=== PATIENT | male | born 1985 | race African-American/Black ===

== ENCOUNTER 2017-05-27 21:47 | Inpatient (IN) | payer OTHER ==
[~2017-05-27] VITALS: Ht 182.9 cm; Wt 75.0 kg
[~2017-05-27 21:47] MED LIST: ACETAMINOPHEN 325 MG TAB PO PRN; FLUMAZENIL 0.5 MG/5 ML VIAL IV PUSH PRN; LORazepam 1 MG TAB PO PRN; LORazepam 2 MG TAB PO PRN; LORazepam 2 MG/ML VIAL IV PUSH PRN; NALOXONE HCL 0.4 MG/ML AMP IV PUSH PRN; SODIUM CHLORIDE 0.9% FLUSH 10 ML FLUSH IV FLUSH PRN
[2017-05-27 21:50] VITALS: PULSE 91
[2017-05-27] MEDS ORDERED: IOHEXOL 350 MG/ML 10 ML VIAL (for RAD DIAG) IVCONTRAST ONE ×2 (22:32)
[2017-05-27] MEDS: SODIUM CHLORIDE 0.9% FLUSH 10 ML FLUSH IV FLUSH SCH ×4 (22:36→22:37)
[2017-05-27] MEDS: ONDANSETRON HCL 4 MG/2 ML VIAL IVP PRN ×2 (22:37)
[2017-05-27 22:49] VITALS: BP 138/88; PULSE 100; RESP 16; TEMP 101.2; O2SAT 99
[2017-05-27] MEDS: LORazepam 2 MG/ML VIAL IV PUSH PRN ×2 (22:53)
[2017-05-27] MEDS: SODIUM CHLOR 0.9% 1000 ML INJ 1,000 ML IV SCH ×2 (23:16)
--- NOTE | 2017-05-28 01:22 | HHI.HP ---
[facility] No Primary Care Physician Admission Diagnosis Diagnoses: Travel History International Travel<30 Days: No Contact w/Intl Traveler <30 Da: No Traveled to Known Affected Are: No History of Present Illness 32-year-old male who has been snorting heroin for the past 6 months presents to the emergency department with nausea and vomiting and acute opiate withdrawal. Per the patient, he has not used opiates in 2 days. He states he feels hot and and clammy. He was febrile on admission to 100.4. Labs were significant for creatinine of 1.70. Review of Systems Denies fever or chills Denies blurry vision, otorrhea, rhinorrhea Denies sore throat and cough No chest pain, palpitations, shortness of breath No abdominal pain Denies constipation/diarrhea/nausea/vomiting Denies muscle pain/weakness No rashes Past Family Social History Past Medical History None Past Surgical History None Reported Medications Reported Meds & Active Scripts Active No Active Prescriptions or Reported Medications Allergies: Coded Allergies: No Known Allergies (Unverified , 05/27/17) Family History Noncontributory Social History Patient has been snorting heroin for 6 months. Denies alcohol. Physical Exam Vital Signs Vital Signs Date Time Temp Pulse Resp B/P (MAP) Pulse Ox O2 Delivery O2 Flow Rate FiO2 05/27/17 22:49 101.2 100 16 138/88 (105) 99 Physical Exam GENERAL: male lying in bed sleeping SKIN: No rashes, ecchymoses or lesions. Cool and dry. HEAD: Atraumatic. Normocephalic. No temporal or scalp tenderness. EYES: Pupils equal round and reactive. Extraocular motions intact. No scleral icterus. No injection or drainage. ENT: Nose without bleeding, purulent drainage or septal hematoma. Throat without erythema, tonsillar hypertrophy or exudate. Uvula midline. Airway patent. NECK: Trachea midline. No JVD or lymphadenopathy. Supple, nontender, no meningeal signs. CARDIOVASCULAR: Regular rate and rhythm without murmurs, gallops, or rubs. RESPIRATORY: Clear to auscultation. Breath sounds equal bilaterally. No wheezes , rales, or rhonchi. GASTROINTESTINAL: Abdomen soft, non-tender, nondistended. No hepato-splenomegaly , or palpable masses. No guarding. MUSCULOSKELETAL: Extremities without clubbing, cyanosis, or edema. No joint tenderness, effusion, or edema noted. No calf tenderness. NEUROLOGICAL: Awake and alert. Cranial nerves II through XII intact. Motor and sensory grossly within normal limits. Normal speech. Caprini VTE Risk Assessment Caprini VTE Risk Assessment: No/Low Risk (score <= 1) Caprini Risk Assessment Model Point Value = 1 Point Value = 2 Point Value = 3 Point Value = 5 Age 41-60 Minor surgery BMI > 25 kg/m2 Swollen legs Varicose veins or History of unexplained or recurrent spontaneous Oral contraceptives or hormone replacement Sepsis (< 1 month) Serious lung disease, including pneumonia (< 1 month) Abnormal pulmonary function Acute myocardial infarction Congestive heart failure (< 1 month) History of inflammatory bowel disease Medical patient at bed rest Age 61-74 Arthroscopic surgery Major open surgery (> 45 min) Laparoscopic surgery (> 45 min) Malignancy Confined to bed (> 72 hours) Immobilizing plaster cast Central venous access Age >= 75 History of VTE Family history of VTE Factor V Leiden Prothrombin [id number] Lupus anticoagulant Anticardiolipin antibodies Elevated serum homocysteine Heparin-induced thrombocytopenia Other congenital or acquired thrombophilia Stroke (< 1 month) Elective arthroplasty Hip, pelvis, or leg fracture Acute spinal cord injury (< 1 month) Prophylaxis Regimen Total Risk Factor Score Risk Level Prophylaxis Regimen 0-1 Low Early ambulation 2 Moderate Order ONE of the following: *Sequential Compression Device (SCD) *Heparin 5000 units SQ BID 3-4 Higher Order ONE of the following medications: *Heparin 5000 units SQ TID *Enoxaparin/Lovenox 40 mg SQ daily (WT < 150 kg, CrCl > 30 mL/min) *Enoxaparin/Lovenox 30 mg SQ daily (WT < 150 kg, CrCl > 10-29 mL/min) *Enoxaparin/Lovenox 30 mg SQ BID (WT < 150 kg, CrCl > 30 mL/min) AND/OR *Sequential Compression Device (SCD) 5 or more Highest Order ONE of the following medications: *Heparin 5000 units SQ TID (Preferred with Epidurals) *Enoxaparin/Lovenox 40 mg SQ daily (WT < 150 kg, CrCl > 30 mL/min) *Enoxaparin/Lovenox 30 mg SQ daily (WT < 150 kg, CrCl > 10-29 mL/min) *Enoxaparin/Lovenox 30 mg SQ BID (WT < 150 kg, CrCl > 30 mL/min) AND *Sequential Compression Device (SCD) Assessment and Plan Assessment and Plan 32-year-old heroin addict admitted for intractable nausea/vomiting, withdrawal symptoms and acute kidney injury 1. Acute kidney injury Creatinine 1.70, no baseline for comparison Hydration with IV fluids Follow-up BMP 2. Opiate withdrawal Suspect nausea/vomiting secondary to withdrawal Case management consulted to assist with possible places for detoxification FEN Heart healthy diet Monitor electrolytes Fluids as above Constance Garduno MD May 28, 2017 01:21
--- NOTE | 2017-05-28 01:46 | RADRPT ---
EXAM DATE/TIME: 05/28/2017 01:18 [facility] COMPARISON: No previous studies available for comparison. INDICATIONS : Fever MEDICAL HISTORY : None. SURGICAL HISTORY : None. ENCOUNTER: Initial ACUITY: 1 day PAIN SCORE: 7/10 LOCATION: Bilateral chest FINDINGS: Single AP view of the chest. The lungs are clear. Cardiomediastinal silhouette within normal limits. No evidence of pleural effusion or pneumothorax. CONCLUSION: No acute cardiopulmonary disease identified. Jermaine Griffin MD on May 28, 2017 at 1:43 Board Certified Radiologist. This report was verified electronically.
[2017-05-28] MEDS: ONDANSETRON HCL 4 MG/2 ML VIAL IVP PRN ×6 (03:55→21:36)
[2017-05-28] MEDS: LORazepam 2 MG/ML VIAL IV PUSH PRN ×4 (03:56→14:09)
[2017-05-28 04:10] VITALS: BP 129/86; PULSE 95; RESP 16; TEMP 99.9; O2SAT 100
[2017-05-28] MEDS: SODIUM CHLOR 0.9% 1000 ML INJ 1,000 ML IV SCH ×6 (06:03→20:40)
[2017-05-28 08:22] LABS: AUTOMATED NEUTROPHIL # 12.5 TH/MM3 (1.8-7.7); BASOPHIL % 0.1 % (0.0-2.0); EOSINOPHIL % 0.1 % (0.0-4.0); HEMATOCRIT 41.4 % (39.0-51.0); HEMOGLOBIN 13.6 GM/DL (13.0-17.0); LYMPH % 9.3 % (9.0-44.0); LYMPHOCYTE # 1.4 TH/MM3 (1.0-4.8); MEAN CELL VOLUME 76.5 FL (80.0-100.0); MEAN CORPUSCULAR HEMOGLOBIN 25.2 PG (27.0-34.0); MEAN CORPUSCULAR HGB CONC 32.9 % (32.0-36.0); MONO % 8.5 % (0.0-8.0); MONOCYTE # 1.3 TH/MM3 (0-0.9); PLATELET COUNT 226 TH/MM3 (150-450); RED BLOOD COUNT 5.42 MIL/MM3 (4.50-5.90); RED CELL DISTRIBUTION WIDTH 14.3 % (11.6-17.2); WHITE BLOOD COUNT 15.3 TH/MM3 (4.0-11.0)
[2017-05-28 08:42] LABS: BICARBONATE 27.7 MEQ/L (21.0-32.0); CALCIUM 8.8 MG/DL (8.5-10.1); CREATININE 1.08 MG/DL (0.60-1.30)
[2017-05-28] MEDS ORDERED: VANCOMYCIN INJ 1,500 MG in SODIUM CHLORID 0.9% 500 ML INJ 500 ML IV ONE ×4 (08:45)
[2017-05-28] MEDS ORDERED: Vancomycin Consult Pharmacy 1 EA OTHER SCH ×2 (08:45)
--- NOTE | 2017-05-28 09:50 | HHI.PR ---
Subjective Remarks Follow up for nausea/vomiting/diarrhea. The patient reports his nausea/vomiting and diarrhea have been going on for 2 days and he has not been able to keep anything down. He reports continued subjective fevers and chills. He denies any cough, congestion, chest pain, or urinary complaints. He is requesting zofran for nausea and a medication for anxiety. He reports only snorting heroin, uses every day, last use 2 days ago. 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 He adamantly denies any IV drug use. He voices motivation to quit using heroin. He has no other medical complaints at this time. Objective Vitals Vital Signs Date Time Temp Pulse Resp B/P (MAP) Pulse Ox O2 Delivery O2 Flow Rate FiO2 05/28/17 04:10 99.9 95 16 129/86 (100) 100 05/27/17 22:49 101.2 100 16 138/88 (105) 99 05/27/17 21:50 91 Result Diagram: 05/28/17 0720 05/28/17 0720 Imaging Last Impressions Chest X-Ray 05/28/17 0000 Signed Impressions: Service Date/Time: Sunday, May 28, 2017 01:18 - CONCLUSION: No acute cardiopulmonary disease identified. Jermaine Griffin MD Objective Remarks GENERAL: Well-nourished, well-developed young male patient in [facility]. SKIN: Warm and dry. No rash. HEENT: Normocephalic. Atraumatic.Pupils equal and round. Mucous membranes pink and moist. CARDIOVASCULAR: Tachycardic, regular rhythm. S1, S2 noted. No murmur appreciated. RESPIRATORY: No accessory muscle use. Clear to auscultation. Breath sounds equal bilaterally. GASTROINTESTINAL: Abdomen soft, non-tender, nondistended. Normoactive bowel sounds x4. MUSCULOSKELETAL: No obvious deformities. Extremities without clubbing, cyanosis , or edema. NEUROLOGICAL: Awake and alert. No obvious cranial nerve deficits. Motor grossly within normal limits. Moving all extremities spontaneously. Normal speech. PSYCHIATRIC: Appropriate mood and affect; insight and judgment normal. Medications and IVs Current Medications Medications (Trade) Dose Ordered Sig/Alexys Route Start Time Stop Time Status Last Admin (NS Flush) 2 ml UNSCH PRN IV FLUSH 05/27/17 18:45 (NS Flush) 2 ml BID IV FLUSH 05/27/17 21:00 05/28/17 10:25 (Narcan Inj) 0.4 mg UNSCH PRN IV PUSH 05/27/17 18:45 Sodium Chloride 1,000 ml @ 150 mls/hr Q6H40M IV 05/27/17 20:03 05/27/17 23:16 (NS Flush) 2 ml UNSCH PRN IV FLUSH 05/27/17 20:15 (NS Flush) 2 ml BID IV FLUSH 05/27/17 21:00 05/28/17 10:25 (Tylenol) 650 mg Q4H PRN PO 05/27/17 20:15 (Zofran Inj) 4 mg Q6H PRN IVP 05/27/17 20:15 05/28/17 10:20 (Lovenox Inj) 40 mg DAILY SQ 05/28/17 09:00 05/28/17 10:21 (Narcan Inj) 0.4 mg UNSCH PRN IV PUSH 05/27/17 20:15 (Romazicon Inj) 0.2 mg Q1M PRN IV PUSH 05/27/17 20:15 (Ativan) 1 mg Q4H PRN PO 05/27/17 20:15 (Ativan Inj) 1 mg Q4H PRN IV PUSH 05/27/17 20:15 05/28/17 03:56 (Ativan) 2 mg Q2H PRN PO 05/27/17 20:15 (Ativan Inj) 2 mg Q2H PRN IV PUSH 05/27/17 20:15 (Ativan Inj) 2 mg Q1H PRN IV PUSH 05/27/17 20:15 (Ativan Inj) 2 mg Q15M PRN IV PUSH 05/27/17 20:15 Pharmacy Profile Note 0 ml @ 0 mls/hr UNSCH OTHER 05/28/17 08:45 (KlonoPIN) 1 mg Q8HR PRN PO 05/28/17 10:00 05/28/17 10:20 A/P Problem List: (1) Opiate withdrawal ICD Code: F11.23 - Opioid dependence with withdrawal (2) INOCENCIO (acute kidney injury) ICD Code: N17.9 - Acute kidney failure, unspecified (3) Dehydration ICD Code: E86.0 - Dehydration (4) Hypokalemia ICD Code: E87.6 - Hypokalemia Assessment and Plan 32-year-old male patient with active heroin use presents to [facility] ED with intractable nausea/vomiting/diarrhea and concerns for acute opiate withdrawal, transferred to [facility] for observation admission//treatment Opiate Withdrawal with Nausea/Vomiting/Diarrhea: patient with daily heroin use, last use 2 days prior to admission. UDS positive for cocaine and cannabinoids. -Continue supportive treatment with IVF hydration, IV zofran prn, imodium prn -Patient voices desire to quit, consult case management to provide information on drug rehab/detox centers -Klonopin prn anxiety SIRS Criteria: possible sepsis. Patient meets SIRS criteria with +leukocytosis WBC 21.5K, fever Tmax 101.2, tachycardia HR 128. Rule out sepsis. -CXR images reviewed, no acute findings -UA negative -Collect blood cultures x2, check lactic acid -Start on empiric treatment with IV Vanco -Continue aggressive IVF hydration with NS at 150 cc/hr -with abdominal pain, will check abdomen/pelvis CT INOCENCIO: Cr 1.70. Suspect secondary to dehydration with recent vomiting/diarrhea. -Given IVF bolus and continued on IVF hydration -Repeat BMP with much improvement, Cr 1.08 -Continue to monitor -Avoid nephrotoxins Hypokalemia: K 2.8 upon arrival to the ED. Suspect secondary to recent vomiting/ diarrhea. -Give po and IV KCl replacement -Repeat K 3.3, given additional KCl 40meq po x1 now -Continue to monitor DVT Prophylaxis: teds/SCDs Discharge Planning Discharge pending further clinical improvement and blood cultures. Trupti Rust PA-C May 28, 2017 09:50
[2017-05-28] MEDS ORDERED: POTASSIUM CHLORIDE 20 MEQ CONTROLLED RELEASE TAB PO ONE ×2 (10:00)
[2017-05-28] MEDS: clonazePAM 1 MG TAB PO PRN ×2 (10:20)
[2017-05-28] MEDS: ENOXAPARIN SODIUM 40 MG/0.4 ML SYRINGE SQ SCH ×2 (10:21)
[2017-05-28] MEDS: SODIUM CHLORIDE 0.9% FLUSH 10 ML FLUSH IV FLUSH SCH ×6 (10:25→21:00)
[2017-05-28 11:25] VITALS: BP 135/80; PULSE 91; RESP 18; TEMP 99.5; O2SAT 99
[2017-05-28] MEDS ORDERED: LOPERAMIDE HCL 2 MG CAP PO PRN ×2 (11:30)
[2017-05-28 15:25] VITALS: BP 160/71; PULSE 56; RESP 18; TEMP 99.3; O2SAT 95
[2017-05-28 15:33] VITALS: BP 130/76; PULSE 81; RESP 20; TEMP 100.1; O2SAT 100
[2017-05-28] MEDS: VANCOMYCIN 1,500 MG/NS 500 ML IV SCH ×4 (16:25)
[2017-05-28] MEDS ORDERED: METHADONE 10 MG/ML VIAL IM ONE ×2 (17:00)
[2017-05-28] MEDS ORDERED: PROMETHAZINE INJ 25 MG/ML VIAL IM ONE ×2 (17:00)
[2017-05-28] MEDS ORDERED: DIATRIZOATE MEGLUM/DIATRIZOATE SOD 9 ML CUP PO ONE ×2 (18:00)
[2017-05-28] MEDS ORDERED: METHADONE HCL 10 MG TAB PO ONE ×2 (18:15)
[2017-05-28 20:10] VITALS: BP 132/94; PULSE 74; RESP 18; TEMP 98; O2SAT 97
--- NOTE | 2017-05-28 22:38 | RADRPT ---
EXAM DATE/TIME: 05/28/2017 22:18 [facility] COMPARISON: No previous studies available for comparison. INDICATIONS : Abdominal pain with fever and vomiting. Leukocytosis, rule out abscess/appendicitis. IV CONTRAST: 100 cc Omnipaque 350 (iohexol) IV ORAL CONTRAST: Prescribed oral contrast ingested. RADIATION DOSE: 6.64 CTDIvol (mGy) MEDICAL HISTORY : Substance abuse. SURGICAL HISTORY : None. ENCOUNTER: Initial ACUITY: 1 day PAIN SCALE: 6/10 LOCATION: Bilateral abdomen TECHNIQUE: Volumetric scanning of the abdomen and pelvis was performed. Using automated exposure control and ad justment of the mA and/or kV according to patient size, radiation dose was kept as low as reasonably achievable to obtain optimal diagnostic quality images. DICOM format image data is available electro nically for review and comparison. FINDINGS: Lung bases are clear. Osseous structures are intact. No pleural or pericardial effusions. Liver, gall bladder, spleen, pancreas, adrenal glands are unremarkable. 5 mm left mid pole renal cortical cyst id entified. Cyst upper pole right kidney measuring 4.7 cm. The appendix is normal. Urinary bladder unre markable. No evidence of bowel obstruction, free fluid or free air. No adenopathy. CONCLUSION: 1. Renal cysts. 2. No inflammatory changes are identified in the abdomen or pelvis. Nico Phelps MD on May 28, 2017 at 22:33 Board Certified Radiologist. This report was verified electronically.
[2017-05-28] MEDS ORDERED: IOHEXOL 350 MG/ML 10 ML VIAL (for RAD DIAG) IVCONTRAST ONE ×2 (22:46)
[2017-05-28 23:44] VITALS: BP 164/78; PULSE 78; RESP 18; TEMP 98.1; O2SAT 97
[2017-05-29] MEDS: VANCOMYCIN 1,500 MG/NS 500 ML IV SCH ×12 (00:43→17:04)
[2017-05-29] MEDS: clonazePAM 1 MG TAB PO PRN ×6 (02:38→20:57)
[2017-05-29] MEDS: SODIUM CHLOR 0.9% 1000 ML INJ 1,000 ML IV SCH ×4 (02:38→18:52)
[2017-05-29] MEDS: ONDANSETRON HCL 4 MG/2 ML VIAL IVP PRN ×6 (02:48→16:58)
[2017-05-29 04:25] VITALS: BP 135/96; PULSE 72; RESP 18; TEMP 98.6; O2SAT 98
[2017-05-29 07:50] VITALS: BP 135/86; PULSE 78; RESP 18; TEMP 98.8; O2SAT 100
[2017-05-29] MEDS ORDERED: PROMETHAZINE INJ 25 MG/ML VIAL IM PRN ×2 (09:15)
[2017-05-29] MEDS: ENOXAPARIN SODIUM 40 MG/0.4 ML SYRINGE SQ SCH ×2 (10:04)
[2017-05-29 10:46] LABS: AUTOMATED NEUTROPHIL # 11.8 TH/MM3 (1.8-7.7); BASOPHIL % 0.2 % (0.0-2.0); EOSINOPHIL % 0.2 % (0.0-4.0); HEMATOCRIT 41.4 % (39.0-51.0); HEMOGLOBIN 13.4 GM/DL (13.0-17.0); LYMPH % 8.3 % (9.0-44.0); LYMPHOCYTE # 1.2 TH/MM3 (1.0-4.8); MEAN CELL VOLUME 76.6 FL (80.0-100.0); MEAN CORPUSCULAR HEMOGLOBIN 24.9 PG (27.0-34.0); MEAN CORPUSCULAR HGB CONC 32.5 % (32.0-36.0); MEAN PLATELET VOLUME 7.4 FL (7.0-11.0); MONO % 7.4 % (0.0-8.0); NEUT % 83.9 % (16.0-70.0); PLATELET COUNT 208 TH/MM3 (150-450); RED CELL DISTRIBUTION WIDTH 14.3 % (11.6-17.2); WHITE BLOOD COUNT 14.1 TH/MM3 (4.0-11.0)
--- NOTE | 2017-05-29 11:53 | HHI.PR ---
Subjective Remarks Follow up for nausea, vomiting, heroine addiction. Patient is doing well. He still has some nausea. No fever but reports some chills. Tolerating liquids. Objective Vitals Vital Signs Date Time Temp Pulse Resp B/P (MAP) Pulse Ox O2 Delivery O2 Flow Rate FiO2 05/29/17 07:50 98.8 78 18 135/86 (102) 100 05/29/17 04:25 98.6 72 18 135/96 (109) 98 05/28/17 23:44 98.1 78 18 164/78 (106) 97 05/28/17 20:10 98.0 74 18 132/94 (107) 97 05/28/17 15:33 100.1 81 20 130/76 (94) 100 I/O 05/28/17 05/28/17 05/28/17 05/29/17 05/29/17 05/29/17 07:00 15:00 23:00 07:00 15:00 23:00 Intake Total 240 ml Output Total 400 ml 1 ml Balance -160 ml -1 ml Intake Oral 240 ml Output Urine Total 400 ml Stool Total 1 ml # Voids 1 Result Diagram: 05/29/17 1019 05/28/17 0720 Imaging Last Impressions Chest X-Ray 05/28/17 0000 Signed Impressions: Service Date/Time: Sunday, May 28, 2017 01:18 - CONCLUSION: No acute cardiopulmonary disease identified. Jermaine Griffin MD Abdomen/Pelvis CT 05/28/17 0000 Signed Impressions: Service Date/Time: Sunday, May 28, 2017 22:18 - CONCLUSION: 1. Renal cysts. 2. No inflammatory changes are identified in the abdomen or pelvis. Nico Phelps MD Objective Remarks GENERAL: AOX3, NAD. SKIN: Warm and dry. HEAD: Normocephalic. EYES: No scleral icterus. No injection or drainage. NECK: Supple, trachea midline. No JVD or lymphadenopathy. CARDIOVASCULAR: Regular rate and rhythm without murmurs, gallops, or rubs. RESPIRATORY: Breath sounds equal bilaterally. No accessory muscle use. GASTROINTESTINAL: Abdomen soft, non-tender, nondistended. MUSCULOSKELETAL: No cyanosis, or edema. BACK: Nontender without obvious deformity. No CVA tenderness. Procedures None. A/P Problem List: (1) Opiate withdrawal ICD Code: F11.23 - Opioid dependence with withdrawal (2) INOCENCIO (acute kidney injury) ICD Code: N17.9 - Acute kidney failure, unspecified (3) Dehydration ICD Code: E86.0 - Dehydration (4) Hypokalemia ICD Code: E87.6 - Hypokalemia Assessment and Plan 32-year-old male patient with active heroin use presents to [facility] ED with intractable nausea/vomiting/diarrhea and concerns for acute opiate withdrawal, transferred to [facility] for observation admission//treatment Opiate Withdrawal with Nausea/Vomiting/Diarrhea: patient with daily heroin use, last use 2 days prior to admission. UDS positive for cocaine and cannabinoids. -Continue supportive treatment with IVF hydration, IV zofran prn, imodium prn -Patient voices desire to quit, consult case management to provide information on drug rehab/detox centers -Klonopin prn anxiety SIRS Criteria: possible sepsis. Patient meets SIRS criteria with +leukocytosis WBC 21.5K, fever Tmax 101.2, tachycardia HR 128. Rule out sepsis. -CXR images reviewed, no acute findings -UA negative -Blood cultures negative so far. Will continue to follow. -Continue Vancomycin today. Will discontinue abx if blood cultures negative for 2 days. -Continue IVF hydration with NS at 100 cc/hr -Abd/Pelvis CT scan unremarkable for any acute findings. INOCENCIO: Cr 1.70. Suspect secondary to dehydration with recent vomiting/diarrhea. -Given IVF bolus and continued on IVF hydration -Repeat BMP with much improvement, Cr 1.08 -Continue to monitor -Avoid nephrotoxins Hypokalemia: K 2.8 upon arrival to the ED. Suspect secondary to recent vomiting/ diarrhea. -Give po and IV KCl replacement -Repeat K 3.3, given additional KCl 40meq po x1 now -Continue to monitor Full code. SCDs, Ambulation. Barbara Joyce DO May 29, 2017 11:53 am
[2017-05-29 12:21] VITALS: BP 119/82; PULSE 88; RESP 18; TEMP 98.8; O2SAT 99
[2017-05-29] MEDS: SODIUM CHLORIDE 0.9% FLUSH 10 ML FLUSH IV FLUSH SCH ×4 (12:40→20:57)
[2017-05-29 15:35] VITALS: BP 127/94; PULSE 71; RESP 18; TEMP 98.4; O2SAT 100
[2017-05-29] MEDS ORDERED: PHARMACY ORDERED LAB ONE ×2 (15:45)
[2017-05-30] MEDS: VANCOMYCIN 1,500 MG/NS 500 ML IV SCH ×8 (00:01→09:49)
[2017-05-30] MEDS: ONDANSETRON HCL 4 MG/2 ML VIAL IVP PRN ×4 (02:58→11:55)
[2017-05-30 03:28] VITALS: BP 122/86; PULSE 75; RESP 18; TEMP 98.5; O2SAT 97
[2017-05-30] MEDS: SODIUM CHLOR 0.9% 1000 ML INJ 1,000 ML IV SCH ×2 (04:43)
[2017-05-30] MEDS: clonazePAM 1 MG TAB PO PRN ×2 (06:39)
[2017-05-30 07:59] VITALS: BP 141/103; PULSE 86; RESP 20; TEMP 98; O2SAT 98
[2017-05-30 09:26] LABS: AUTOMATED NEUTROPHIL # 9.8 TH/MM3 (1.8-7.7); BASOPHIL % 0.2 % (0.0-2.0); EOSINOPHIL # 0.1 TH/MM3 (0-0.4); EOSINOPHIL % 1.1 % (0.0-4.0); HEMATOCRIT 41.6 % (39.0-51.0); HEMOGLOBIN 13.9 GM/DL (13.0-17.0); LYMPHOCYTE # 1.8 TH/MM3 (1.0-4.8); MEAN CELL VOLUME 76.7 FL (80.0-100.0); MEAN CORPUSCULAR HEMOGLOBIN 25.6 PG (27.0-34.0); MEAN CORPUSCULAR HGB CONC 33.3 % (32.0-36.0); MEAN PLATELET VOLUME 7.7 FL (7.0-11.0); MONO % 7.6 % (0.0-8.0); NEUT % 77.1 % (16.0-70.0); PLATELET COUNT 216 TH/MM3 (150-450); RED BLOOD COUNT 5.42 MIL/MM3 (4.50-5.90); WHITE BLOOD COUNT 12.7 TH/MM3 (4.0-11.0)
[2017-05-30 09:44] LABS: CALCIUM 8.6 MG/DL (8.5-10.1); CREATININE 0.94 MG/DL (0.60-1.30)
[2017-05-30] MEDS: SODIUM CHLORIDE 0.9% FLUSH 10 ML FLUSH IV FLUSH SCH ×2 (09:49)
[2017-05-30] MEDS: ENOXAPARIN SODIUM 40 MG/0.4 ML SYRINGE SQ SCH ×2 (09:50)
[2017-05-30 11:53] VITALS: BP 125/82; PULSE 77; RESP 22; TEMP 97.4; O2SAT 100
--- NOTE | 2017-05-30 12:21 | PD.AMA ---
Against Medical Advice Note Discharge Disposition: Against Medical Advice Pt Condition on Discharge: Stable AMA Statement Patient Virgilio Andrea has decided to leave the hospital against medical advice. This patient has the capacity to refuse care and understands the risks of leaving, including permanent disability and/or , and has had an opportunity to ask questions about his condition. The patient has been informed that he may return for care at any time, and follow up has been arranged/ advised. Trupti Rust PA-C May 30, 2017 12:21
--- NOTE | 2017-05-30 14:46 | HHI.DS ---
Discharge Summary Admission Date May 27, 2017 at 21:53 Discharge Date: May 30, 2017 Admitting Diagnosis (1) Opiate withdrawal ICD Code: F11.23 - Opioid dependence with withdrawal (2) INOCENCIO (acute kidney injury) ICD Code: N17.9 - Acute kidney failure, unspecified (3) Dehydration ICD Code: E86.0 - Dehydration (4) Hypokalemia ICD Code: E87.6 - Hypokalemia (5) Heroin addiction ICD Code: F11.20 - Opioid dependence, uncomplicated Diagnosis: Principal Procedures None. Brief History - From Admission 32-year-old male who has been snorting heroin for the past 6 months presents to the emergency department with nausea and vomiting and acute opiate withdrawal. Per the patient, he has not used opiates in 2 days. He states he feels hot and and clammy. He was febrile on admission to 100.4. Labs were significant for creatinine of 1.70. CBC/BMP: 05/30/17 0803 05/30/17 0803 Significant Findings Laboratory Tests Test 05/28/17 07:20 05/28/17 10:00 05/28/17 13:10 05/29/17 10:19 White Blood Count 15.3 TH/MM3 (4.0-11.0) 14.1 TH/MM3 (4.0-11.0) Mean Corpuscular Volume 76.5 FL (80.0-100.0) 76.6 FL (80.0-100.0) Mean Corpuscular Hemoglobin 25.2 PG (27.0-34.0) 24.9 PG (27.0-34.0) Neutrophils (%) (Auto) 82.0 % (16.0-70.0) 83.9 % (16.0-70.0) Monocytes (%) (Auto) 8.5 % (0.0-8.0) Neutrophils # (Auto) 12.5 TH/MM3 (1.8-7.7) 11.8 TH/MM3 (1.8-7.7) Monocytes # (Auto) 1.3 TH/MM3 (0-0.9) 1.0 TH/MM3 (0-0.9) Potassium Level 3.3 MEQ/L (3.5-5.1) Urine Cocaine Screen POS (NEG) Urine Cannabinoids Screen POS (NEG) Lymphocytes (%) (Auto) 8.3 % (9.0-44.0) Test 05/29/17 16:45 05/30/17 08:03 Vancomycin Level Trough 15.6 MCG/ML (5.0-10.0) White Blood Count 12.7 TH/MM3 (4.0-11.0) Mean Corpuscular Volume 76.7 FL (80.0-100.0) Mean Corpuscular Hemoglobin 25.6 PG (27.0-34.0) Neutrophils (%) (Auto) 77.1 % (16.0-70.0) Neutrophils # (Auto) 9.8 TH/MM3 (1.8-7.7) Monocytes # (Auto) 1.0 TH/MM3 (0-0.9) Blood Urea Nitrogen 6 MG/DL (7-18) Potassium Level 3.3 MEQ/L (3.5-5.1) PE at Discharge GENERAL: AOX3, NAD. SKIN: Warm and dry. HEAD: Normocephalic. EYES: No scleral icterus. No injection or drainage. NECK: Supple, trachea midline. No JVD or lymphadenopathy. CARDIOVASCULAR: Regular rate and rhythm without murmurs, gallops, or rubs. RESPIRATORY: Breath sounds equal bilaterally. No accessory muscle use. GASTROINTESTINAL: Abdomen soft, non-tender, nondistended. MUSCULOSKELETAL: No cyanosis, or edema. BACK: Nontender without obvious deformity. No CVA tenderness. Pt update on day of discharge Patient is doing well. He has not had any fever, chills. Tolerating diet. Patient later left AMA. Our plan today was to discontinue abx and observe overnight to make sure he does not have any further fever. Blood cultures negative so far. Hospital Course 32-year-old male patient with active heroin use presents to [facility] ED with intractable nausea/vomiting/diarrhea and concerns for acute opiate withdrawal, transferred to [facility] for observation admission//treatment. Due to fever, patient was started on vancomycin. Blood cultures so far negative. Our plan was to continue vancomycin today and observation off antibiotics. However patient left AGAINST MEDICAL ADVICE. Pt Condition on Discharge: Fair Discharge Disposition: Discharge Home (patient left AGAINST MEDICAL ADVICE) Discharge Time: <= 30 minutes Discharge Instructions Activities you can perform: Regular-No Restrictions Barbara Joyce DO May 30, 2017 14:46
--- NOTE | 2017-05-30 14:48 | HHI.PR ---
Subjective Remarks Follow up for nausea, vomiting, heroine addiction. Patient was seen in the morning around 9:30 AM. Patient is currently doing well. Denies any chest pain , shortness of breath, fever or chills. Tolerating diet well. Objective Vitals Vital Signs Date Time Temp Pulse Resp B/P (MAP) Pulse Ox O2 Delivery O2 Flow Rate FiO2 05/30/17 11:53 97.4 77 22 125/82 (96) 100 05/30/17 07:59 98.0 86 20 141/103 (116) 98 05/30/17 03:28 98.5 75 18 122/86 (98) 97 05/29/17 15:35 98.4 71 18 127/94 (105) 100 I/O 05/29/17 05/29/17 05/29/17 05/30/17 05/30/17 05/30/17 07:00 15:00 23:00 07:00 15:00 23:00 Intake Total 800 ml 375 ml Output Total 1 ml Balance -1 ml 800 ml 375 ml Intake Oral 800 ml IV Total 375 ml Stool Total 1 ml # Voids 1 5 1 # Bowel Movements 1 Result Diagram: 05/30/17 0803 05/30/17 0803 Objective Remarks GENERAL: AOX3, NAD. SKIN: Warm and dry. HEAD: Normocephalic. EYES: No scleral icterus. No injection or drainage. NECK: Supple, trachea midline. No JVD or lymphadenopathy. CARDIOVASCULAR: Regular rate and rhythm without murmurs, gallops, or rubs. RESPIRATORY: Breath sounds equal bilaterally. No accessory muscle use. GASTROINTESTINAL: Abdomen soft, non-tender, nondistended. MUSCULOSKELETAL: No cyanosis, or edema. BACK: Nontender without obvious deformity. No CVA tenderness. Procedures None. A/P Problem List: (1) Opiate withdrawal ICD Code: F11.23 - Opioid dependence with withdrawal (2) INOCENCIO (acute kidney injury) ICD Code: N17.9 - Acute kidney failure, unspecified (3) Dehydration ICD Code: E86.0 - Dehydration (4) Hypokalemia ICD Code: E87.6 - Hypokalemia (5) Heroin addiction ICD Code: F11.20 - Opioid dependence, uncomplicated Assessment and Plan 32-year-old male patient with active heroin use presents to [facility] ED with intractable nausea/vomiting/diarrhea and concerns for acute opiate withdrawal, transferred to [facility] for observation admission//treatment Opiate Withdrawal with Nausea/Vomiting/Diarrhea: patient with daily heroin use, last use 2 days prior to admission. UDS positive for cocaine and cannabinoids. -Continue supportive treatment with IVF hydration, IV zofran prn, imodium prn -Patient voices desire to quit, consult case management to provide information on drug rehab/detox centers -Klonopin prn anxiety SIRS Criteria: possible sepsis. Patient meets SIRS criteria with +leukocytosis WBC 21.5K, fever Tmax 101.2, tachycardia HR 128. Rule out sepsis. -CXR images reviewed, no acute findings -UA negative -Blood cultures negative so far. Will continue to follow. -We'll plan to discontinue vancomycin today and observe patient off of antibiotics. If he remains afebrile, he can be discharged tomorrow. -Continue IVF hydration with NS at 100 cc/hr -Abd/Pelvis CT scan unremarkable for any acute findings. INOCENCIO: Cr 1.70. Suspect secondary to dehydration with recent vomiting/diarrhea. -Given IVF bolus and continued on IVF hydration -Repeat BMP with much improvement, Cr 1.08 -Continue to monitor -Avoid nephrotoxins Hypokalemia: K 2.8 upon arrival to the ED. Suspect secondary to recent vomiting/ diarrhea. -Give po and IV KCl replacement -Repeat K 3.3, given additional KCl 40meq po x1 now -Continue to monitor Full code. SCDs, Ambulation. Barbara Joyce DO May 30, 2017 14:47
[2017-05-30] MEDS ORDERED: PHARMACY ORDERED LAB ONE ×2 (15:45)
== END 2017-05-30 12:46 | disposition left against medical advice (07) | DRG 894 ==
LOC: NEDDLT 21:47 → NEPGCP 21:53 → OBSVTOIN 21:53
PROVIDERS: ADMIT Hospitalist; ATTEND Hospitalist
DX: F11.23 Opioid dependence with withdrawal (principal); N17.9 Acute kidney failure, unspecified; E86.0 Dehydration; E87.6 Hypokalemia; F41.9 Anxiety disorder, unspecified
CPT/HCPCS: 71010; 74177; 76937; 80048; 80053; 80202; 80307; 81001; 82948; 83605; 83690; 85025; 87040; 93005; J1650; J2060; J2405; J2550; J3370; J3480; J7030; J7040; Q9963; Q9967

== ENCOUNTER 2017-06-07 05:59 | Emergency (ER) | payer OTHER ==
[~2017-06-07] VITALS: Ht 182.9 cm; Wt 73.0 kg
[2017-06-07 06:06] VITALS: BP 157/99; PULSE 88; RESP 18; TEMP 99; O2SAT 100
--- NOTE | 2017-06-07 06:22 | PD ---
HPI Chief Complaint: Abdominal Pain Time Seen by Provider: 06:08 Travel History International Travel<30 days: No Contact w/Intl Traveler<30days: No Traveled to known affect area: No History of Present Illness HPI The patient is a 32 year old male who presents to the [facility] emergency department with a history of generalized abdominal pain associated with nausea and vomiting that began Tuesday morning. The patient reports that he is concerned that he may have a recurrent infection. He reports that he was admitted to the hospital related to a possible infection earlier in the month. He is unsure what type of infection at was. He left AGAINST MEDICAL ADVICE prior to the completion of his workup because he reports that he had a personal issue. 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 The patient reports that he snorts heroin. He reports that he's been doing this for the last 6 months. He reports that he last used one week ago. The patient reports that he's had nausea and vomiting approximately every 20-30 minutes. He denies having any diarrhea. He cannot recall when he last moved his bowels. He denies ever being in a detox program previously. He resides in [place], [place]. On review of systems, the patient denies having any known recent fevers, cough, congestion, neck pain, chest pain, shortness of breath, urinary symptoms, or neurologic symptoms. [facility] Past Medical History Narrative Medical The patient's past medical history is significant for heroin use Asthma: No Blood Disorders: No Anxiety: Yes Depression: No Heart Rhythm Problems: No Cancer: No Cardiovascular Problems: No High Cholesterol: No Chemotherapy: No Chest Pain: No Congestive Heart Failure: No COPD: No Diabetes: No Diminished Hearing: No Endocrine: No Genitourinary: No Immune Disorder: No Musculoskeletal: No Neurologic: No Psychiatric: Yes Reproductive: No Respiratory: No Radiation Therapy: No Sleep Apnea: No Thyroid Disease: No Tetanus Vaccination: Unknown Past Surgical History Narrative Surgical The patient's past surgical history is reportedly none. Surgical History: No Previous Surgery Other Surgery: No Social History Alcohol Use: No Tobacco Use: No Substance Use: Yes ("SNORTING HEROIN ABOUT A WEEK AGO") Allergies-Medications (Allergen,Severity, Reaction): Coded Allergies: No Known Allergies (Unverified , 06/07/17) Reported Meds & Prescriptions Reported Meds & Active Scripts Active No Active Prescriptions or Reported Medications Review of Systems Except as stated in HPI: all other systems reviewed are Neg General / Constitutional: No: Fever Eyes: No: Visual changes HENT: No: Headaches Cardiovascular: No: Chest Pain or Discomfort Respiratory: No: Shortness of Breath Gastrointestinal: Positive: Nausea, Vomiting, Abdominal Pain, No: Diarrhea, Changes in Bowel Habits, Indigestion, Loss of Appetite Genitourinary: No: Dysuria Musculoskeletal: No: Pain Skin: No Rash Neurologic: No: Weakness Psychiatric: No: Depression Endocrine: No: Polydipsia Hematologic/Lymphatic: No: Easy Bruising Physical Exam Narrative General: The patient is well-developed well-nourished male in no acute distress. Head and Neck exam: Head is normocephalic atraumatic. Eyes: EOMI, pupils are equal round and reactive to light. Nose: Midline septum with pink mucous membranes Mouth: Dentition unremarkable. Moist mucus membranes. Posterior oropharynx is not erythematous. No tonsillar hypertrophy. Uvula midline. Airway patent. Neck: No palpable lymphadenopathy. No nuchal rigidity. No thyromegaly. Cardiovascular: Sinus tachycardia in the low 100s without murmurs, gallops, or rubs. No pulse deficit to the extremities on simultaneous auscultation and palpation of his radial artery Lungs: Clear to auscultation bilaterally. No wheezes, rhonchi, or rales. Abdomen: Soft, with tenderness reported on palpation of bilateral upper quadrants as well as lower quadrants of the abdomen. The patient has normal bowel sounds are audible. No point tenderness specifically over McBurney's point. No guarding, rebound, or rigidity. Negative Garcia's sign. Extremities: No clubbing, cyanosis, or edema. 2+ pulses in all 4 extremities. Back: No spinous process tenderness to palpation. Right-sided CVA tenderness on palpation Neurologic Exam: Grossly nonfocal. Skin Exam: No rash noted. Intact skin that is warm and dry. Data Data Last Documented VS Vital Signs Date Time Temp Pulse Resp B/P (MAP) Pulse Ox O2 Delivery O2 Flow Rate FiO2 06/07/17 06:06 99.0 88 18 157/99 (118) 100 Orders Orders Electrocardiogram (06/07/17 06:16) Complete Blood Count With Diff (06/07/17 06:16) Comprehensive Metabolic Panel (06/07/17 06:16) Blood Culture (06/07/17 06:16) C-Reactive Protein (Crp) (06/07/17 06:16) Lipase (06/07/17 06:16) Urinalysis - C+S If Indicated (06/07/17 06:16) Westergren Sedimentation Rate (06/07/17 06:16) Magnesium (Mg) (06/07/17 06:16) Chest, Single Ap (06/07/17 06:16) Iv Access Insert/Monitor (06/07/17 06:16) Ecg Monitoring (06/07/17 06:16) Oximetry (06/07/17 06:16) Drug Screen, Random Urine (06/07/17 06:16) Alcohol (Ethanol) (06/07/17 06:16) Ondansetron Inj (Zofran Inj) (06/07/17 07:00) Sodium Chlor 0.9% 1000 Ml Inj (Ns 1000 M (06/07/17 07:00) Labs Laboratory Tests Test 06/07/17 06:20 White Blood Count 12.0 TH/MM3 Red Blood Count 5.93 MIL/MM3 Hemoglobin 15.0 GM/DL Hematocrit 45.4 % Mean Corpuscular Volume 76.5 FL Mean Corpuscular Hemoglobin 25.2 PG Mean Corpuscular Hemoglobin Concent 33.0 % Red Cell Distribution Width 14.3 % Platelet Count 344 TH/MM3 Mean Platelet Volume 7.3 FL Neutrophils (%) (Auto) 87.2 % Lymphocytes (%) (Auto) 7.3 % Monocytes (%) (Auto) 5.3 % Eosinophils (%) (Auto) 0.0 % Basophils (%) (Auto) 0.2 % Neutrophils # (Auto) 10.4 TH/MM3 Lymphocytes # (Auto) 0.9 TH/MM3 Monocytes # (Auto) 0.6 TH/MM3 Eosinophils # (Auto) 0.0 TH/MM3 Basophils # (Auto) 0.0 TH/MM3 CBC Comment DIFF FINAL Differential Comment MDM Medical Decision Making Medical Screen Exam Complete: Yes Emergency Medical Condition: Yes Medical Record Reviewed: Yes Interpretation(s) Last Impressions Chest X-Ray 06/07/1716 Signed Impressions: Service Date/Time: Wednesday, June 07, 2017 06:35 - CONCLUSION: Normal examination. Lester Ortiz MD Differential Diagnosis Electrolyte derangements, versus dehydration, versus pyelonephritis, versus gastroenteritis, versus bowel obstruction Narrative Course During the course of the patients emergency department visit, the patients history, examination, and differential diagnosis were reviewed with the patient. The patient was placed on a vice president of brand management with oximetry and frequent blood pressure monitoring. The patient had IV access obtained and blood work sent for analysis. The patient was initially provided normal saline 1 L IV fluid bolus, Zofran 4 mg IV. The patients laboratory studies were reviewed and remarkable for a white count of 12, hemoglobin 15, platelets 344, neutrophils 87.2. CMP is pending, sedimentation rate is pending, urinalysis is pending. Radiology studies were reviewed and remarkable for a chest x-ray that shows no acute cardiopulmonary disease. Patient's case will be checked out to the oncoming emergency physician to disposition the patient based on the conclusion of the patient's workup. I anticipate that if the patient is able to tolerate by mouth hydration the patient will be able to be discharged home to follow-up with the [facility] for consideration of further assistance with detoxification. I did have a lengthy discussion with the patient regarding the fact that [place] is not a detox center. Diagnosis Primary Impression: Vomiting Qualified Codes: R11.2 - Nausea with vomiting, unspecified Additional Impression: Heroin use Scripts No Active Prescriptions or Reported Meds Christine Jo MD Jun 07, 2017 06:22
--- NOTE | 2017-06-07 06:49 | RADRPT ---
EXAM DATE/TIME: 06/07/2017 06:35 [facility] COMPARISON: CHEST SINGLE AP, May 28, 2017, 1:18. INDICATIONS : Chest pain, cough. MEDICAL HISTORY : None. SURGICAL HISTORY : None. ENCOUNTER: Initial ACUITY: 1 day PAIN SCORE: 0/10 LOCATION: Bilateral chest FINDINGS: A single view of the chest demonstrates the lungs to be symmetrically aerated without evidence of mas s, infiltrate or effusion. The cardiomediastinal contours are unremarkable. Osseous structures are intact. CONCLUSION: Normal examination. Lester Ortiz MD on June 07, 2017 at 6:48 Board Certified Radiologist. This report was verified electronically.
[2017-06-07] MEDS ORDERED: ONDANSETRON HCL 4 MG/2 ML VIAL IV ONE (07:00)
[2017-06-07] MEDS ORDERED: SODIUM CHLOR 0.9% 1000 ML INJ 1,000 ML IV ONE (07:00)
[2017-06-07 07:02] LABS: AUTOMATED NEUTROPHIL # 10.4 TH/MM3 (1.8-7.7); BASOPHIL % 0.2 % (0.0-2.0); HEMATOCRIT 45.4 % (39.0-51.0); HEMO FLAGS DIFF FINAL; LYMPH % 7.3 % (9.0-44.0); LYMPHOCYTE # 0.9 TH/MM3 (1.0-4.8); MEAN CELL VOLUME 76.5 FL (80.0-100.0); MEAN CORPUSCULAR HEMOGLOBIN 25.2 PG (27.0-34.0); MONO % 5.3 % (0.0-8.0); NEUT % 87.2 % (16.0-70.0); PLATELET COUNT 344 TH/MM3 (150-450); RED BLOOD COUNT 5.93 MIL/MM3 (4.50-5.90); RED CELL DISTRIBUTION WIDTH 14.3 % (11.6-17.2)
[2017-06-07 07:26] LABS: ALKALINE PHOSPHATASE 101 U/L (45-117); TOTAL BILIRUBIN ADULT 0.6 MG/DL (0.2-1.0)
[2017-06-07 07:43] LABS: ALT (GPT) 24 U/L (12-78); ANION GAP 11 MEQ/L (5-15); AST (GOT) 15 U/L (15-37); BLOOD UREA NITROGEN 10 MG/DL (7-18); CHLORIDE 96 MEQ/L (98-107); GLOMERULAR FILTRATION RATE 89 ML/MIN (>89); MAGNESIUM 2.2 MG/DL (1.5-2.5); POTASSIUM 3.3 MEQ/L (3.5-5.1); SODIUM (NA) 136 MEQ/L (136-145)
[2017-06-07 07:45] LABS: ALCOHOL LESS THAN 3 MG/DL (0-5)
[2017-06-07] MEDS ORDERED: ZOFR4TAB3 SL (09:07)
--- NOTE | 2017-06-07 09:08 | PD ---
Data Data Last Documented VS Vital Signs Date Time Temp Pulse Resp B/P (MAP) Pulse Ox O2 Delivery O2 Flow Rate FiO2 06/07/17 06:06 99.0 88 18 157/99 (118) 100 Orders Orders Electrocardiogram (06/07/17 06:16) Complete Blood Count With Diff (06/07/17 06:16) Comprehensive Metabolic Panel (06/07/17 06:16) Blood Culture (06/07/17 06:16) C-Reactive Protein (Crp) (06/07/17 06:16) Lipase (06/07/17 06:16) Urinalysis - C+S If Indicated (06/07/17 06:16) Westergren Sedimentation Rate (06/07/17 06:16) Magnesium (Mg) (06/07/17 06:16) Chest, Single Ap (06/07/17 06:16) Iv Access Insert/Monitor (06/07/17 06:16) Ecg Monitoring (06/07/17 06:16) Oximetry (06/07/17 06:16) Drug Screen, Random Urine (06/07/17 06:16) Alcohol (Ethanol) (06/07/17 06:16) Ondansetron Inj (Zofran Inj) (06/07/17 07:00) Sodium Chlor 0.9% 1000 Ml Inj (Ns 1000 M (06/07/17 07:00) Labs Laboratory Tests Test 06/07/17 06:20 White Blood Count 12.0 TH/MM3 Red Blood Count 5.93 MIL/MM3 Hemoglobin 15.0 GM/DL Hematocrit 45.4 % Mean Corpuscular Volume 76.5 FL Mean Corpuscular Hemoglobin 25.2 PG Mean Corpuscular Hemoglobin Concent 33.0 % Red Cell Distribution Width 14.3 % Platelet Count 344 TH/MM3 Mean Platelet Volume 7.3 FL Neutrophils (%) (Auto) 87.2 % Lymphocytes (%) (Auto) 7.3 % Monocytes (%) (Auto) 5.3 % Eosinophils (%) (Auto) 0.0 % Basophils (%) (Auto) 0.2 % Neutrophils # (Auto) 10.4 TH/MM3 Lymphocytes # (Auto) 0.9 TH/MM3 Monocytes # (Auto) 0.6 TH/MM3 Eosinophils # (Auto) 0.0 TH/MM3 Basophils # (Auto) 0.0 TH/MM3 CBC Comment DIFF FINAL Differential Comment Erythrocyte Sedimentation Rate 2 mm/hr Blood Urea Nitrogen 10 MG/DL Creatinine 1.14 MG/DL Random Glucose 92 MG/DL Total Protein 8.3 GM/DL Albumin 4.3 GM/DL Calcium Level 10.1 MG/DL Magnesium Level 2.2 MG/DL Alkaline Phosphatase 101 U/L Aspartate Amino Transf (AST/SGOT) 15 U/L Alanine Aminotransferase (ALT/SGPT) 24 U/L Total Bilirubin 0.6 MG/DL Sodium Level 136 MEQ/L Potassium Level 3.3 MEQ/L Chloride Level 96 MEQ/L Carbon Dioxide Level 29.0 MEQ/L Anion Gap 11 MEQ/L Estimat Glomerular Filtration Rate 89 ML/MIN C-Reactive Protein 0.32 MG/DL Lipase 86 U/L Ethyl Alcohol Level LESS THAN 3 MG/DL MDM Supervised Visit with YARON: No Narrative Course Patient was seen by Dr. Jo prior to me. He presents with symptoms of opiate withdrawal. He is requesting detoxification. Labs are reassuring. He appears well. I don't think he has a surgical etiology of his symptoms and I think he can be discharged home. Diagnosis Primary Impression: Vomiting Qualified Codes: R11.2 - Nausea with vomiting, unspecified Additional Impression: Heroin use Patient Instructions: General Instructions Additional Instruction: If you develop severe or worsening abdominal pain, fever>100.4, persistent vomiting or inability to eat or drink return to the emergency department immediately. Follow up with your primary care physician in 1-2 days for a check-up. Follow up with Andres Villanueva in regards to psychiatric or substance related issues at: [address] [place] [address] Med/Other Pt SpecificInfo: Prescription(s) given Scripts Ondansetron Odt (Zofran Odt) 4 Mg Tab 4 MG SL Q6HR Y for Nausea/Vomiting, #15 TAB 0 Refills Prov: Chandni Gil MD 06/07/17 Disposition: 01 DISCHARGE HOME Condition: Stable Chandni Gil MD Jun 07, 2017 09:08
--- NOTE | 2017-06-07 14:05 | EKG ---
Date Performed: 06/07/2017 Time Performed: 06:28:27 PTAGE: 32 years EKG: Sinus rhythm POSSIBLE LEFT ATRIAL ENLARGEMENT NONSPECIFIC T-WAVE ABNORMALITY BORDERLINE ECG NO PREVIOUS TRACING DOCTOR: Aly Evans Interpretating Date/Time 06/07/2017 14:01:44
== END 2017-06-07 09:54 | disposition home or self-care (01) ==
LOC: NEPC 05:59
DX: R11.2 Nausea with vomiting, unspecified (principal); R10.84 Generalized abdominal pain; F11.90 Opioid use, unspecified, uncomplicated; R00.0 Tachycardia, unspecified; F41.9 Anxiety disorder, unspecified; N17.9 Acute kidney failure, unspecified; R94.31 Abnormal electrocardiogram [ECG] [EKG]
CPT/HCPCS: 71010; 80053; 80307; 83690; 83735; 85025; 85652; 86140; 87040; 93005; 96361; 96374; 99285; J2405; J7030